=== PATIENT | female | born 2005 | race Two or more races ===

== ENCOUNTER 2025-03-18 12:12 | Emergency (ER) | payer OTHER, MEDICAID, SELFPAY ==
[2025-03-18 12:13] VITALS: BMI 44.9
[2025-03-18 12:20] VITALS: BP 116/86; PULSE 84; RESP 18; TEMP 36.8; O2SAT 97
--- NOTE | 2025-03-18 12:37 | PD.EDNV ---
Nausea/Vomit./Diarrhea-RME/HPI General Chief complaint: Nausea/Vomiting/Diarrhea Stated complaint: VOMITING AND DIARRHEA EXPOSED TO FLU Time Seen by Provider: 03/18/25 12:15 Arrival date/time: 03/18/25 12:12 19-year-old female presents to the emergency department today states she was exposed to the flu patient reports nausea vomiting and diarrhea. Limitations: no limitations Related Data Home Medications ?Medication ?Instructions ?Recorded ?Confirmed albuterol sulfate 90 mcg/actuation 1 puff inhalation Q6H 11/17/17 01/03/22 aerosol inhaler paroxetine HCl 10 mg tablet 10 mg PO QDAY 01/03/22 01/03/22 Previous Rx's ?Medication ?Instructions ?Recorded loperamide 2 mg capsule (Imodium 2 mg PO Q6H PRN loose stool #14 03/18/25 A-D) caps ondansetron 4 mg disintegrating 4 mg PO Q8H PRN nausea and 03/18/25 tablet vomiting #10 tabs Allergies Allergy/AdvReac Type Severity Reaction Status Date / Time No Known Allergies Allergy Verified 03/18/25 12:16 Review of Systems Review of Systems Systems Reviewed: All systems reviewed, normal except as documented Constitutional Constitutional: Reports system reviewed and no additional complaints, except as documented, Denies fever(s) and Denies headache(s) Eyes Eyes: Reports system reviewed and no additional complaints, except as documented and Denies blurry vision ENT Ears, Nose, Mouth, and Throat: Reports system reviewed and no additional complaints, except as documented, Denies headache(s), Denies nasal congestion and Denies nasal discharge Cardiovascular Cardiovascular: Reports system reviewed and no additional complaints, except as documented, Denies chest pain and Denies dyspnea Respiratory Respiratory: Reports system reviewed and no additional complaints, except as documented, Denies chest congestion, Denies cough and Denies dyspnea Gastrointestinal Gastrointestinal: Reports system reviewed and no additional complaints, except as documented, Denies abdominal pain, Reports loose stools, Reports nausea and Reports vomiting Integumentary/Breasts Skin/Breast: Reports system reviewed and no additional complaints, except as documented and Denies rash Neurologic Neurologic: Reports system reviewed and no additional complaints, except as documented, Reports as per HPI and Denies headache(s) Past Medical History Past Medical History CARDIAC: Negative Congestive Heart Failure RESPIRATORY: Positive Asthma; Negative Chronic Obstructive Pulmonary Disease (COPD) GENITOURINARY: Negative Renal Disease ENDOCRINE: Negative Diabetes Mellitus Type 1 or Diabetes Mellitus Type 2 PSYCHO/SOCIAL: Positive Depression and Anxiety Social History SMOKING STATUS: Never smoker SUBSTANCE USE: does not use ED Exam General Limitations: Present no limitations General appearance: Present alert and in no apparent distress Head Head exam: Present atraumatic Eye Eye exam: Present normal appearance, PERRL and EOMI; Absent conjunctival injection ENT ENT exam: Present normal exam, normal oropharynx and mucous membranes moist Neck Neck exam: Present normal inspection, full ROM and trachea midline Chest Chest inspection: Present normal inspection and symmetric chest wall rise Respiratory Respiratory exam: Present normal lung sounds bilaterally; Absent respiratory distress Cardiovascular Cardiovascular exam: Present regular rate, normal rhythm and normal heart sounds Abdominal Exam Abdominal exam: Present soft and normal bowel sounds; Absent distention, tenderness, guarding, rebound or rigidity Extremities Exam Extremities exam: Present normal inspection and full ROM Back Exam Back exam: Present normal inspection and full ROM Neurological Exam Neurological exam: Present alert, oriented X3 and CN II-XII intact Psychiatric Psychiatric exam: Present normal affect and normal mood Skin Skin exam: Present warm, dry, intact and normal color Course Quality Measures none Orders Category Date Time Status Bedside Influenza A&B Antigen Test NOW Care 03/18/25 12:23 Completed Loperamide [Imodium] Med 03/18/25 12:23 Discontinued 4 mg PO X1 ONE Ondansetron Odt [Zofran Odt] Med 03/18/25 12:23 Discontinued 4 mg PO X1 ONE Vital Signs Vital signs: Vital Signs Temperature 98.2 F 03/18/25 12:20 Pulse Rate 84 03/18/25 12:20 Respiratory Rate 18 03/18/25 12:20 Blood Pressure 116/86 H 03/18/25 12:20 Pulse Oximetry (%) 97 03/18/25 12:20 Oxygen Delivery Method Room Air 03/18/25 12:20 O2 saturation 97% room air wnl Nausea/Vomiting/Diarrhea MDM Narrative MDM Narrative:: 19-year-old female presents to the emergency department today states she was exposed to the flu patient reports nausea vomiting and diarrhea. On exam patient well-appearing patient does not appear toxic no acute distress Patient checked for flu which came back positive Patient discharged home in no distress to follow-up with primary care doctor in the next 24 to 48 hours and for any worsening symptoms to return to the ER immediately Patient data External records reviewed:: [facility] previous records Clinical information provided by:: patient Social determinants that could affect healthcare access:: none Patient has the following chronic illnesses:: None How is presenting disease/condition affected by chronic disease/condition?: no chronic disease Evaluation data The following diagnostics were reviewed and interpreted by me:: lab results and radiology exam(s) Lab and/or radiology exams considered but not ordered:: Labs radiology obtain Interpretation Summary: Reviewed by me Medications / Prescriptions Medications / Prescriptions considered but not ordered:: Given Medication administrations:: Medication Administration History Discontinued Medications Loperamide HCl (Loperamide 2 Mg Capsule) 4 mg PO X1 ONE Stop: 03/18/25 12:24 Last Admin: 03/18/25 12:38 Dose: 4 mg Documented By: NADEGE Ondansetron HCl (Ondansetron Odt 4 Mg Tabrap) 4 mg PO X1 ONE; Protocol Stop: 03/18/25 12:24 Last Admin: 03/18/25 12:39 Dose: 4 mg Documented By: NADEGE Given Consultations Consultation(s) initiated? (list below): No Diagnosis Nausea Differential Diagnosis: traveler's diarrhea, food poisoning and gastroenteritis Most likely diagnosis given after review of the tests above:: Influenza Admission Indicated Admission indicated?: not indicated Admission Request Was there a request for admission?: No Disposition Plan Disposition Plan: Discharge Discharge Attestation Discharge Attestation: The patient and all family members were given an opportunity to ask questions and understood the discharge instructions. Discharge instructions specifically effects, indications for sooner follow up or return to the emergency department, and the expected course of current diagnosis. Patient condition: Stable Discharge Plan Plan Patient Disposition: HOME (Self Care) Discharge Disposition comment: Stable Prescriptions/Referrals Prescriptions/Med Rec: New loperamide [Imodium A-D] 2 mg capsule 2 mg PO Q6H PRN (Reason: loose stool) Qty: 14 0RF ondansetron 4 mg tablet,disintegrating 4 mg PO Q8H PRN (Reason: nausea and vomiting) Qty: 10 0RF No Action paroxetine HCl 10 mg tablet 10 mg PO QDAY Patient Comments: take 1 tablet by mouth at bedtime albuterol sulfate 90 mcg/actuation Hfa Aerosol Inhaler 1 puff INHALATION Q6H Problem List Clinical Impression: Nausea vomiting and diarrhea, Influenza B Patient/Caregiver Discharge Instructions Education Materials: ED Viral Syndrome (Adult) Additional Instructions: Please follow up with your primary care doctor in the next 24-48hrs for any worsening symptoms return here immediately Print Language: [place] Zealander Stand Alone Forms: Anu Award Info., Work/School Release, Patient Portal Info Letter PA/SHIP LINER Supervising Physician PA/SHIP LINER Supervising Physician: Dr. olvera
[2025-03-18] MEDS: LOPERAMIDE 2 MG CAPSULE 4 MG PO (12:38)
[2025-03-18] MEDS: ONDANSETRON ODT 4 MG TABRAP PO (12:39)
== END 2025-03-18 13:10 | disposition home or self-care (01) ==
LOC: SERX 12:50
PROVIDERS: Emergency Provider Emergency Medicine; PCP Family Medicine
DX: J10.2 Influenza due to other identified influenza virus with gastrointestinal manifestations (principal)
CPT/HCPCS: 87400; 99283; Q0162; A9270

== ENCOUNTER 2025-10-06 17:57 | Emergency (ER) | payer OTHER, MEDICAID, SELFPAY ==
--- NOTE | 2025-10-06 18:37 | PC.NURSE ---
PT DID NOT WANT TO WAIT, SIGNED [facility] FORM.
--- NOTE | 2025-10-07 00:09 | PD.EDADDENDU ---
Emergency Room Addendum Addendum Narrative: When I looked for the patient to start my evaluation, I was told the patient eloped. Ryan Adame MD
== END 2025-10-06 18:29 | disposition left against medical advice (07) ==
PROVIDERS: Emergency Provider Emergency Medicine
DX: Z53.21 Procedure and treatment not carried out due to patient leaving prior to being seen by health care provider (principal)
CPT/HCPCS: 99281